=== PATIENT | female | born 1970 | race Caucasian/White ===

== ENCOUNTER 2020-01-25 19:03 | Emergency (ER) | payer OTHER ==
[~2020-01-25] VITALS: Ht 157.5 cm; Wt 75.8 kg
[2020-01-25] MEDS ORDERED: FLUOXETINE HCL40 MG PO (19:48)
[2020-01-25] MEDS ORDERED: PREDNISONE 20 M20 M1 PO (22:03)
[2020-01-25] MEDS ORDERED: HYDROXYZINE HCL25 M2 PO (22:03)
[2020-01-25 23:59] VITALS: BP 146/98
[2020-01-26] MEDS ORDERED: EPIPEN 2-P0.3 MG/0.3 IM (17:30)
== END 2020-01-25 23:55 | disposition home or self-care (01) ==
LOC: ER 19:03
DX: L50.9 Urticaria, unspecified (principal); H57.89 Other specified disorders of eye and adnexa; Z79.899 Other long term (current) drug therapy

== ENCOUNTER 2020-01-26 14:05 | Emergency (ER) | payer OTHER ==
[~2020-01-26] VITALS: Ht 157.5 cm; Wt 75.8 kg
--- NOTE | ~2020-01-26 | EMS ---
[place] [address] EMS Patient Care Report Name: NAKUL PEREZ Room #: REG MARCOS Aquino#: [id number] Admission: 01/26/20 Attend Phys: Discharge: Date of : 72 Report #: [id number] THIS REPORT FOR: //name// Report Transmitted: 01/26/2020 14:06 EMS Care Summary [place], [place]/[facility] Incident [id number] @ 01/26/2020 13:39 Incident Location [address] [place] [address] Patient NAKUL PEREZ Female, 49 Years 1970 Patient Address [address] [place] [address] Patient History None Reported, Patient Allergies No known allergies, Patient Medications Hydralazine, Fluoxetine, Prednisone, Chief Complaint POSSIBLE ALLERGIC REACTION Disposition Transported No Lights/[place] Reason Breathing Problem Transported To [facility] Narrative PT FOUND STANDING ON [place] [place]. [facility] ALSO RESPONDED AND DID NOT HAVE ANY PT CONTACT. PT STATES THAT SHE STARTED FEELING HER THROAT WAS GETTING TIGHT AND STARTED AHVING COUGHING ABOUT 30 MINUTES AFTER TAKING HYRALAZINE WHICH IS A NEW MEDICATION FOR HER. PT DENIES FEVER, PREVIOUS COUGH OR [place] [address] EMS Patient Care Report Name: NAKUL PEREZ Room #: REG MARCOS Aquino#: [id number] Admission: 01/26/20 Attend Phys: Discharge: Date of : 72 Report #: [id number] CLEAR. PT GIVEN A LVL 1 MASK TO WEAR FOR TRASNPORT. TRANSPORTED WITHOUT INCIDENT. Initial Vitals @13:46P: 138,R: 20,BP: 178/107,Pain: 0/10,GCS: 15,SpO2: 97,Revised Trauma: 12, Assessments @13:46MENTAL:No Abnormalities,SKIN:No Abnormalities,HEENT:Head/Face: No Abnormalities,Eyes: No Abnormalities,Neck/Airway: No Abnormalities,LUNG SOUNDS:ABDOMEN:PELVIS//GI:EXTREMITIES:PULSE:NEURO:No Abnormalities, Impression Allergic Reaction Procedures @13:46ALS AssessmentResponse: UnchangedFailed Timeline 13:38,Call Received 13:38,Dispatch Notified 13:39,Dispatched 13:41,En Route 13:45,On Scene 13:46,At Patient 13:46,ALS Assessment,Response: UnchangedFailed, 13:46,BP: 178/107 M,PULSE: 138,RR: 20 R,SPO2: 97 Ox,ETCO2: ,BG: ,PAIN: 0,GCS: 15, 13:50,Depart Scene 14:01,At Destination 14:17,Call Closed Disclaimer v1.1 Copyright 2020 [employer] This EMS Care Summary contains data elements from the applicable legal record (which may be displayed differently). It is designed to provide pertinent information for the following purposes: continuity of care, clinical quality, and state data reporting. The complete legal record is available to ED staff and administrators of the receiving hospital in [employer]'s Patient Tracker. All data is provided "as is."
[~2020-01-26 14:05] MED LIST: FLUOXETINE HCL40 MG PO; HYDROXYZINE HCL25 M2 PO; PREDNISONE 20 M20 M1 PO
[2020-01-26] MEDS ORDERED: EPIPEN 2-P0.3 MG/0.3 IM (17:30)
[2020-01-26 17:33] VITALS: BP 125/76
== END 2020-01-26 17:34 | disposition home or self-care (01) ==
LOC: ER 14:05
DX: L50.9 Urticaria, unspecified (principal); T46.5X5A Adverse effect of other antihypertensive drugs, initial encounter; Y92.89 Other specified places as the place of occurrence of the external cause